=== PATIENT | male | born 2000 | race Two or more races ===

== ENCOUNTER 2025-01-23 09:24 | Emergency (ER) | payer SELFPAY ==
[~2025-01-23] VITALS: Ht 177.8 cm; Wt 82.0 kg
[2025-01-23 09:30] VITALS: BP 132/82; O2SAT 100
[2025-01-23 09:31] VITALS: PULSE 101; RESP 20; O2SAT 98
[2025-01-23 09:56] LABS: BASOPHILS % 0.7 % (0.0-2.0); EOSINOPHILS % 0.2 % (0.0-5.0); HEMATOCRIT. 39.7 % (42.0-52.0); HEMOGLOBIN. 13.4 g/dL (14.0-18.0); LYMPHOCYTES % 10.2 % (20.0-50.0); MEAN CORPUSCULAR HEMOGLOBIN 31.9 pg (28.0-32.0); MEAN CORPUSCULAR HGB CONC 33.6 g/dL (31.0-37.0); MEAN CORPUSCULAR VOLUME 94.9 fL (80.0-94.0); MEAN PLATELET VOLUME 8.6 fl (7.4-10.4); MONOCYTES % 7.3 % (2.0-8.0); NEUTROPHILS % 81.6 % (40.0-76.0); PLATELET 262 x1000/uL (130-400); RED BLOOD CELL COUNT 4.19 mill/uL (4.7-6.1); RED CELL DISTRIBUTION WIDTH 12.9 % (11.6-14.6); WHITE BLOOD COUNT 9.5 x1000/uL (4.5-11.0)
[2025-01-23 10:00] LABS: CHLORIDE 100 mEq/L (98-107); POTASSIUM 3.6 mEq/L (3.5-5.1); SODIUM 136 mEq/L (136-145)
[2025-01-23 10:01] LABS: CARBON DIOXIDE 23 mEq/L (21-32)
[2025-01-23 10:06] LABS: CREATININE 0.8 mg/dL (0.6-1.3); GLUCOSE 117 mg/dL (70-105)
[2025-01-23 10:07] LABS: ETHANOL BLOOD < 10 mg/dL (<10); INR 1.1; PROTHROMBIN TIME 11.4 sec (9.6-11.0); UREA NITROGEN BLOOD 17 mg/dL (9-23)
== END 2025-01-23 11:49 | disposition home or self-care (01) ==
LOC: ER 09:24
DX: R20.2 Paresthesia of skin (principal); F14.10 Cocaine abuse, uncomplicated
CPT/HCPCS: 36415; 80048; 80320; 85025; 93005; 99284; G0480